=== PATIENT | female | born 1965 | race Asian ===

== ENCOUNTER → 2018-01-14 | Outpatient (CLI) | payer OTHER ==
[~2018-01-14] MED LIST: PRED5DRO20 RIGHTEYE
== END | disposition home or self-care (01) ==
LOC: STAR 15:22
PROVIDERS: ATTEND Internal Medicine
DX: Z02.9 Encounter for administrative examinations, unspecified (principal)

== ENCOUNTER 2018-01-19 06:53 | Day surgery (SDC) | payer OTHER ==
[~2018-01-19] VITALS: Ht 154.9 cm; Wt 57.0 kg
[2018-01-19 07:08] VITALS: BP 106/63
[2018-01-19] MEDS ORDERED: LACTATED RINGERS 1,000 ML IV SCH (07:29)
[2018-01-19 07:32] LABS: HCG UR SG 1.024 (1.003-1.030)
[2018-01-19] MEDS ORDERED: PHENYLEPHRINE 10 MG/ML ONE (08:08)
[2018-01-19] MEDS ORDERED: PROPOFOL 10 MG/ML, 20ML ONE (08:08)
[2018-01-19] MEDS ORDERED: PROPOFOL 10 MG/ML, 50ML ONE (08:08)
[2018-01-19] MEDS ORDERED: CIPROFLOXACIN 400MG/200ML PMX ONE (08:08)
[2018-01-19] MEDS ORDERED: MIDAZOLAM 1 MG/ML, 2ML ONE (08:08)
[2018-01-19] MEDS ORDERED: EPHEDRINE 50 MG/ML, 1ML ONE (08:08)
[2018-01-19] MEDS ORDERED: HYDROmorphone 1 MG/ML, 1ML IV PRN (10:00)
[2018-01-19] MEDS ORDERED: LABETALOL 5MG/ML, 20ML IV PRN (10:00)
[2018-01-19] MEDS ORDERED: MEPERIDINE/PF 25MG/0.5ML IVPush PRN (10:00)
[2018-01-19] MEDS ORDERED: OXYcodone 5 MG/5 ML ORAL.SOL UDC PO PRN (10:00)
[2018-01-19] MEDS ORDERED: MIDAZOLAM 1 MG/ML, 2ML IV PRN (10:00)
[2018-01-19] MEDS ORDERED: ONDANSETRON 2MG/ML, 2ML IVPush PRN (10:00)
[2018-01-19] MEDS ORDERED: FENTANYL PF 100 MCG/2ML IV PRN (10:00)
[2018-01-19] MEDS ORDERED: OMNIPAQUE 350 MG/ML, 100ML BOTTLE ONE (10:58)
== END 2018-01-19 11:45 | disposition home or self-care (01) ==
LOC: OUT 06:53
PROVIDERS: ATTEND Internal Medicine
DX: K63.89 Other specified diseases of intestine (principal); R59.1 Generalized enlarged lymph nodes; Z88.0 Allergy status to penicillin
CPT/HCPCS: 45342; 74177; 81025; 88172; 88173; 88177; 88305; J0744; J2250; J2370; J2704; J7120; Q9967; 88341; 88342

== ENCOUNTER → 2019-08-16 | Outpatient (CLI) | payer OTHER | END | disposition home or self-care (01) | LOC: CFH 14:06 | PROVIDERS: ATTEND Internal Medicine | DX: R05 Cough (principal) | CPT/HCPCS: 71250 ==